=== PATIENT | female | born 1985 | race Caucasian/White ===

== ENCOUNTER 2021-05-03 09:45 | Outpatient (RCR) | payer OTHER, SELFPAY ==
[2021-04-14 11:13] VITALS: BMI 61.9
--- NOTE | 2021-04-14 16:16 | HO.PS.ADMBH ---
[facility] Date of Service: 04/14/21 Chief Complaint: Depression, Anxiety Sources of Information: patient interviewed, chart reviewed and crisis/core team assessment reviewed HPI Guardianship: No Medical Problems Affecting Mental Status: No Narrative: Ms. Gould is a 36 year-old single female, refered to [facility] by [facility] crisis, where she had presented with intense fear, panic, and depressed mood. She explains that her symptoms have escalated over the past two months. She reports she had been stable with Lexapro for years, and did very well. She explained that about a year and half ago, COVID shut down her work, and she stopped taking the Lexapro because she did not feel she needed it at that time. 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 She says that she currently is on leave from work, as the position is extremely demanding. Client explains that she had been doing fairly well until the end of January, although she had begun experiencing random dizzy spells about 6 months ago. 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 She had gone away with her family on vacation this summer, and began to experience severe anxiety when thought of returning to work came on 02/19. That day, she found an old Lexapro 20mg tab that was in her car, and decided to take it. She also had a drink, of vodka and [place]. Soon afterwards, she has began experiencing vomiting, diarrhea, and describes ?lots of anxiety ?, such as feeling as if she were on a roller coaster. She reports that ?then the depression set in ?. Endorses episodes of derealization, dissociation, rumination/over analyzing, hopelessness, helplessness, guilt, anhedonia, and impaired concentration as well as memory. Physical symptoms include frequent vomiting. She used contacted her primary care provider, who had originally prescribed the Lexapro. She was placed back on it, but states that she had multiple side effects, with no help with anxiety. She was also started on prn lorazepam, 0.5mg TID, which she continues to utilize at this time, with somewhat positive affect. She contacted [facility] crisis earlier this month, and they assisted her in finding a psychiatric provider. Her new provider has started her with Prozac. She reports that she started taking the Prozac yesterday. Past medication trials include Zoloft, which caused difficulty in sleeping. Wellbutrin, which caused increased anxiety. Lexapro, which caused GI upset (she had done well with lexapro in past). She was recently placed on Cymbalta, as well as Latuda. She did not like the effect of either, as she experienced N&V. Prozac was initiated yesterday. Aliza reports growing up with both parents, who she had described as supportive. She currently lives in an apartment above them. She has 1 sister, who she also describes as supportive. She reports meeting developmental milestones as expected, although does report receiving extra help with reading as a young child. She denies any type of symptoms such as periods of increased energy, little sleep, feeling extremely productive, or other types of hypomanic behaviors. She reports that she has been experiencing intrusive thoughts at times regarding passive SI, but then states ?I do not want to harm myself or ?. She has no plan or intent at this time. She is hoping to gain healthy coping skills while participating in [facility], in order to help manage her depression and anxiety symptoms, and prevent needing inpatient level of care. Past Psychiatric History: First sought treatment / therapy at age 27, due to ?extreme trauma and harassment ?. [facility] in 2012. Medical Evaluation Reviewed: Yes [facility] Medical History (Updated 04/14/21 @ 16:54 by Jody Garcia) Arthritis Sleep apnea Surgical History (Updated 04/14/21 @ 13:32 by Janet Ta RN) History of adenectomy Family History: paternal grandmother: post- depression, alzheimers Multiple cousins with depression father: extremely emotional / anxious, depression when younger No family history of suicidality or substance use disorder. Social History: Raised by both parents, has 1 sister, describes family as supportive. Substance History: None reported Trauma History: Was bullied throughout school Diagnostics Vital Signs (24Hr): Body Mass Index 61.9 Meds/Allergies Allergies Allergies Allergy/AdvReac Type Severity Reaction Status Date / Time amoxicillin Allergy Hives Verified 04/14/21 13:33 Penicillins [PCN] Allergy Hives Verified 04/14/21 13:33 Mental Status Exam Mental Status Exam Narrative: Well groomed, obese female, in NAD. Sitting upright, fully attentive and participatory during interview. No involuntary movements noted, motor activity calm, posture within normal limits. Ambulation not observed. Patient Appearance: Well Grooomed and Appropriate Patient Orientation: Person, Place, Time and Situation Level of Consciousness: Awake, Appropriate and Alert Patient Behavior: Appropriate, Anxious and Good Eye Contact Mood Description: Appropriate, Depressed and Anxious Affect Description: Appropriate, Depressed and Anxious Patient Cognition Impaired: No Ability to Follow Directions: Excellent Speech Pattern: Clear, Appropriate, Spontaneous Speech and Coherent Memory Description: Intact and Recent Impaired (Impaired short-term memory) Hallucinations: None Delusions: Not Present Perceptual Disturbances: Depersonalization Thought Process: Intact, Goal Oriented and Linear Thought Content: positive for Intact, positive for Perseveration (Extremely concerned regarding medications, risk of dependence, physical symptoms of anxiety.) and positive for Suicidal Ideation (Passive SI, no plan or intent at this time.) Depressive Symptoms: Increased Anxiety, Diff. Making Decisions, Difficulty Sleeping, Loss of Int. in Activity, Feelings of Worthlessness, Hopelessness, Feelings of Guilt, Unhappiness, Increased Fatigue, Thoughts of /Suicide, Low Self Esteem and Difficulty Concentrating Judgement: Fair Telehealth Telehealth Location of provider rendering services: practice address Location of patient: address on file Patient Identification confirmed using: Name, : Yes Telehealth method: video Patient verbally consented to treatment: Yes Patient verbally consented to billing insurance company: Yes Patient informed of any privacy concerns related to visit: Yes Time spent with patient (mins): 45 Assessment & Plan Assessment & Plan (1) Major depressive disorder, recurrent severe without psychotic features: Status: Acute Code(s): F33.2 - Major depressive disorder, recurrent severe without psychotic features Assessment and Plan: Client describes current symptoms of depressive disorder. Includes recent multiple stressors over the past 2 years, which have exacerbated her symptoms, especially most recently within the past 2 months. She has had multiple medication trials especially over the past 2 months. Has started Prozac yesterday. Education provided regarding medication, side effects, risks and benefits. Client encouraged to wait out transient side effects at this time, to allow medication to be effective. She was in agreement with this. She does endorse intrusive thoughts at times, passive SI, with no intent or plan. Use of atypical antipsychotics was discussed briefly, for assistance with intrusive thoughts as well as mood regulation. She stated that she would consider this. (2) Generalized anxiety disorder: Status: Acute Code(s): F41.1 - Generalized anxiety disorder Assessment and Plan: Client has expressed severe anxiety over the past several months, which actually began approximately 6 months ago. She had been managed very well with Lexapro for years for both depression and anxiety, but had stopped taking it during pandemic. When re-initiated recently, found that it caused severe side effects and was no longer effective. Client's provider has prescribed lorazepam 0.5 mg t.i.d. p.r.n.. Client expressed concern regarding potential addiction. Medication education provided, including indication for use of lorazepam, as well as risks and benefits, potential side effects as well as ways to taper down once no longer needed. Client was in agreement to continue utilizing this medication as prescribed for now, as she begins course of SSRI therapy. (3) Panic disorder: Status: Acute Code(s): F41.0 - Panic disorder [episodic paroxysmal anxiety] Assessment and Plan: Client currently utilizing p.r.n. lorazepam to help manage overwhelming feelings of anxiety and panic. Med appears to have be having somewhat positive affect at this time. Client is also asking about Vistaril. Medication education regarding hydroxyzine provided, including indications for use, risks and benefits, side effects, etc.. Client is in agreement to continue with lorazepam at this time, and to consider hydroxyzine if and when appropriate. Assessment and Plan: 1. Continue current medications as prescribed at this time. 2. Follow-up with client as per protocol. 3. Client encouraged to research use of hydroxyzine as well as atypical antipsychotic such as quetiapine or risperidone. She stated she would do so and then present any questions she has regarding any of these medications going forward, during next encounter. Reason for continued partial hosp. stay Substantial Risk for: harm to self, inability to function, rapid decompensation and med/psych decompensation Certification I certify that partial hospital treatment is medically necessary due to the symptoms and problems resulting from the patient's mental illness and the failure to treat the patient at the partial hospital level of care would likely result in the patient requiring inpatient psychiatric care which could not be prevented at a less intensive level of care.
--- NOTE | 2021-04-17 08:15 | PC.ADMIT ---
Patient is a 36 year old female who was referred to [facility] by [facility] d/t increase in anxiety with panic attacks and depression with passive SI however no plan or intent, stating she does not want to . Patient unable to work d/t symptoms and she is currently on a MATTHIAS from work as a result. Patient is currently living with her parents even though she has her own apartment however she is afraid to be alone. Reports decreased appetite losing 50 lbs recently that has been unintentional. States she has been sick in the am and having diarrhea d/t extreme anxiety. Patient also reports she has sleep apnea and uses a c-pap machine however is only getting 6-8 hours of sleep per night with multiple awakenings. Patient reports she is not able to function and is having difficulty leaving the house. Reports her mood has been stable for a long time until recently and has a history of attending PHP in 2012 and found it helpful at that time. Patient had some recent medication changes and has started Prozac 2 days ago. Worried she will never feel better again. Reports dizzy spells related to anxiety and is constantly thinking negative thoughts about herself. Reports multiple stressors including mothers diagnosis of breast cancer. Patient alert and oriented x4. Presents with depressed mood, anxious affect. Denied SI. Patient gave verbal permission to email her a copy of her safety plan. Medications reconciled with patient and patient's pharmacy.
--- NOTE | 2021-04-17 16:22 | PC.NURSE ---
Case opened in treatment team.
--- NOTE | 2021-04-19 16:20 | HO.PHPPROGNO ---
Subjective Subjective Date of Service: 04/19/21 Reason For Visit: Depression, Anxiety Guardianship: No Medical Problems Affecting Mental Status: No Interim History: Aliza reports she is taking the fluoxetine 10 mg daily. Also utilizing Ativan t.i.d. p.r.n. as prescribed. She does report that since she began the increased dose of fluoxetine from 5 mg to 10 mg, she does notice a little more nausea. She states that she had to force herself to eat breakfast this a.m., and did not eat lunch today due to nausea. She reports that her parents have told her they have seen an improvement in her demeanor since she has begun using Prozac. She states she also feels like she is getting better. Tearful at times during encounter, states that she feels guilty, feels cooped up at her home. Describes continued passive SI with no plan or intent, although states that they are less than last visit. She reports she is participating in groups during the day, but then she feels drained afterwards, and is going to bed early each night. Medication Compliance: Yes Side effects from medications: No Attending Groups: Yes Review of Systems Acute medical concerns: No Medical Review of Systems: unchanged Review of Systems Review of Systems Yes all other systems are reviewed and are negative Mental Status Exam Mental Status Exam Narrative: Well devloped female, in NAD. Appropriate grooming, dressed appropriately. Alert and oriented x4. Patient Appearance: Well Grooomed, Fatigued and Appropriate Patient Orientation: Person, Place, Time and Situation Level of Consciousness: Appropriate and Alert Patient Behavior: Appropriate, Cooperative, Anxious, Good Eye Contact and Crying (Tearful at times during encounter.) Mood Description: Appropriate, Depressed and Anxious Affect Description: Appropriate, Depressed and Anxious Patient Cognition Impaired: No Speech Pattern: Clear, Appropriate, Spontaneous Speech and Coherent Memory Description: Intact Hallucinations: None Delusions: Not Present Thought Process: Intact, Goal Oriented and Linear Thought Content: positive for Intact, positive for Goal Oriented, positive for Linear and positive for Suicidal Ideation (passive SI, with no intent or plan) Depressive Symptoms: Increased Anxiety, Difficulty Sleeping (reports tossing and turning throughout night), Changes in Appetite, Crying Spells, Loss of Int. in Activity, Feelings of Worthlessness, Hopelessness, Isolating-Friends/Family, Feelings of Guilt, Unhappiness, Increased Fatigue, Thoughts of /Suicide, Low Self Esteem, Loss of Energy and Difficulty Concentrating Judgement: Fair Diagnostics Vital Signs (24Hr): Body Mass Index 61.9 Assessment & Plan Assessment & Plan (1) Major depressive disorder, recurrent severe without psychotic features: Status: Acute Code(s): F33.2 - Major depressive disorder, recurrent severe without psychotic features Assessment and Plan: Patient had taken Prozac 5 mg x 1 week, dose was increased to 10 mg, which she started this morning. Discussed continuing with taper, she will consider in 1 week going to a higher dose of Prozac. She is fearful regarding side effects, as she has experienced some slight GI symptoms. She is hopeful regarding Prozac, as she has noticed a he lived in [facility], as well has her parents noticing it. She continues with passive SI, although states that they are less intense than last week. Denies any intent or plan, no safety concern at this time. (2) Generalized anxiety disorder: Status: Acute Code(s): F41.1 - Generalized anxiety disorder Assessment and Plan: Client continues with 0.5 lorazepam, t.i.d. p.r.n.. She is fearful of developing addiction. This was discussed in detail, and client was encouraged to continue using as prescribed, as it is helping to manage anxiety symptoms. Other strategies also discussed, such as journaling, reframing, distraction techniques, etc.. (3) Panic disorder: Status: Acute Code(s): F41.0 - Panic disorder [episodic paroxysmal anxiety] Assessment and Plan: 1. Prozac 10 mg daily x7 days, with plan to increase dose as tolerated. 2. Continue with current lorazepam 0.5 t.i.d. p.r.n. for anxiety. 3. Will follow-up as per protocol. Patient educated on: diagnosis, medication risk/benefits, substance abuse and therapeutic strategies Informed Consent: understands Reason for contiued partial hosp. stay Substantial Risk for: inability to function and med/psych decompensation Certification I certify that partial hospital treatment is medically necessary due to the symptoms and problems resulting from the patient's mental illness and the failure to treat the patient at the partial hospital level of care would likely result in the patient requiring inpatient psychiatric care which could not be prevented at a less intensive level of care. I spent minutes with the patient and/or on the patient floor today, greater than?50% of which was spent counseling/coordinating care. Discharge Plan Discharge Attending provider: Vipul Jones Medications: No Action fluoxetine 10 mg Tablet 10 mg PO DAILY RF: 0 lorazepam [Ativan] 0.5 mg Tablet 0.5 mg PO TID PRN (Reason: Anxiety) RF: 0 Telehealth Telehealth Location of provider rendering services: practice address Location of patient: address on file Patient Identification confirmed using: Name, : Yes Telehealth method: video Patient verbally consented to treatment: Yes Patient verbally consented to billing insurance company: Yes Patient informed of any privacy concerns related to visit: Yes Time spent with patient (mins): 15
--- NOTE | 2021-04-24 14:54 | HO.PHPPROGNO ---
Subjective Subjective Date of Service: 04/24/21 Reason For Visit: Depression, Anxiety Guardianship: No Medical Problems Affecting Mental Status: No Interim History: Aliza reports that she feels the Prozac is helping. Willing to have increased in dose today. Also reports continued use Ativan p.r.n.. Overall continues with some anxiety and depression, but feels it is slowly improving. Does not feel has had panic attack in past 2 days. Medication Compliance: Yes Side effects from medications: No Attending Groups: Yes Review of Systems Acute medical concerns: No Medical Review of Systems: unchanged Review of Systems Review of Systems Yes all other systems are reviewed and are negative Constitutional: Reports no additional constitutional complaints Eyes: Reports no additional eye complaints Reports Normal hearing present Cardiovascular: Reports no additional cardiovascular complaints Respiratory: Reports no additional respiratory complaints Gastrointestinal: Reports no additional gastrointestinal complaints Genitourinary: Reports no additional female genitourinary complaints Musculoskeletal: Reports no additional musculoskeletal complaints Reports Normal hearing present Mental Status Exam Mental Status Exam Narrative: Well-developed female, in no apparent distress. Appears stated age, dressed appropriately for age and season. No involuntary movements noted, motor activity calm, posture within normal limits. Denies any thought of harm to self or others, denies any type of hallucinations or delusional thought, does not appear to be responding to any type of internal stimuli. No mood lability or constriction noted. Patient Appearance: Well Grooomed and Appropriate Patient Orientation: Person, Place, Time and Situation Level of Consciousness: Awake Patient Behavior: Appropriate, Cooperative, Anxious, Good Eye Contact and Crying (tearful at times) Mood Description: Appropriate, Depressed and Anxious Affect Description: Appropriate, Depressed and Anxious Patient Cognition Impaired: No Ability to Follow Directions: Excellent Speech Pattern: Appropriate, Spontaneous Speech and Coherent Memory Description: Intact Hallucinations: None Delusions: Not Present Perceptual Disturbances: Depersonalization (Reports zoning out watching movies over wknd, feeling as if dissociating. ) Thought Process: Intact, Goal Oriented and Linear Thought Content: positive for Intact, positive for Goal Oriented and positive for Linear Depressive Symptoms: Increased Anxiety, Difficulty Sleeping, Crying Spells, Loss of Int. in Activity, Feelings of Worthlessness, Hopelessness, Feelings of Guilt, Increased Fatigue and Low Self Esteem Judgement: Fair Diagnostics Vital Signs (24Hr): Body Mass Index 61.9 Assessment & Plan Assessment & Plan (1) Major depressive disorder, recurrent severe without psychotic features: Status: Acute Code(s): F33.2 - Major depressive disorder, recurrent severe without psychotic features Assessment and Plan: Client reports she has taken Prozac 10 mg since last week, with no side effects noted. States she is willing to in consider dose increase at this time. Discussed increasing it to 20 mg daily, she was in agreement. She continues with some overall depression and anxiety symptoms, although she feels they are beginning to improve. We did discuss adding adjunct of medication if needed, such as low-dose risperidone, quetiapine, or Abilify. She states she would like to trial the increased Prozac x1 week for now, but will consider at next week if needed. (2) Generalized anxiety disorder: Status: Acute Code(s): F41.1 - Generalized anxiety disorder Assessment and Plan: Client continues to she feels that she is beginning to show some improvement signs regarding anxiety. utilize p.r.n. Ativan 0.5 mg t.i.d.. Has ample supply at home, no refills needed at this time. (3) Panic disorder: Status: Acute Code(s): F41.0 - Panic disorder [episodic paroxysmal anxiety] Assessment and Plan: Client continues to utilize p.r.n. Ativan as needed, reports no panic attacks over past few days, feels that she is beginning to improve regarding symptoms. Assessment and Plan: 1. Increase prozac to 20mg daily. 2. Continue with prn ativan 0.5mg TID prn as prescribed. 3. Follow-up as per protocol Patient educated on: diagnosis, medication risk/benefits and therapeutic strategies Informed Consent: understands Reason for contiued partial hosp. stay Substantial Risk for: inability to function and med/psych decompensation Certification I certify that partial hospital treatment is medically necessary due to the symptoms and problems resulting from the patient's mental illness and the failure to treat the patient at the partial hospital level of care would likely result in the patient requiring inpatient psychiatric care which could not be prevented at a less intensive level of care. I spent minutes with the patient and/or on the patient floor today, greater than?50% of which was spent counseling/coordinating care. Discharge Plan Discharge Attending provider: Vipul Jones Medications: New fluoxetine 20 mg tablet 20 mg PO DAILY Qty: 30 RF: 0 Discontinued fluoxetine 10 mg Tablet 10 mg PO DAILY RF: 0 No Action lorazepam [Ativan] 0.5 mg Tablet 0.5 mg PO TID PRN (Reason: Anxiety) RF: 0 Telehealth Telehealth Location of provider rendering services: practice address Location of patient: address on file Patient Identification confirmed using: Name, : Yes Telehealth method: video Patient verbally consented to treatment: Yes Patient verbally consented to billing insurance company: Yes Patient informed of any privacy concerns related to visit: Yes Time spent with patient (mins): 15
--- NOTE | 2021-04-26 15:33 | PC.NURSE ---
I called pt after she was tearful in a group and requested a call from staff. She was still quite tearful and shared that she just got a call from [facility] stating that she will no longer be able to see Dr. Post at [facility]. She said the person who called her stated that Dr. Post was temporary, and was to end when she got into [facility]. Pt said she was never told this, and she was extremely distraught upon hearing this news. She reported passive SI, but no plan or intent. We discussed the possibility of me referring her to [facility] for therapy and med management, as pt has to stop seeing her therapist at the end of May due to [facility] apparently closing their behavioral health services. Pt was more tearful at the thought of having to end early with her therapist in able to access med management services. She began to display panic. We then reviewed coping skills including breathing and ideas to distract, and pt seemed somewhat more calm but still a bit tearful. She reported plans to speak with her father, and spend time with both parents. We agreed to talk about the issue at a later time.
--- NOTE | 2021-04-26 15:48 | PC.NURSE ---
I received a call from Sada Sánchez at [facility] asking about pt's discharge plans and if the plan includes medication management. After getting pt's permission to call, I called back and LM for Sada letting her know that we only found out today about Dr. Post being temporary , and that it would likely take months for her to get in with another med provider. I explained that PHP is a 2-3 week program, and asked her to pls call back if she has any way to help with this.
--- NOTE | 2021-05-01 13:10 | PC.NURSE ---
Spoke to patient's PCP's office asking if they will prescribe patient medications until Aliza has an appointment with a new medication prescriber. Patient's PCP Aliza Maza left a message on my machine stating she will prescribe the medications she just needs to know the doses of the medications which we will fax upon patient d/c from the program. The patient Aliza is aware.
--- NOTE | 2021-05-02 14:27 | P.PNPSP_ITS ---
Subjective Subjective Date of Service: 05/02/21 Reason For Visit: Depression, Anxiety Interim History: Patient seen and discussed with team. Patient evaluated this morning and upon interview she reports she is hanging in there. She was able to titrate her prozac dose to 20 mg. States the first day she took it she didnt notice any nauseousness, however the second and third day she did notice nausea. Denies benefit, however has not had dizzy spells on prozac. Says she is still having to take ativan 3 times a day, has been using it 2 mo. Pt is tearful discussing GI sensitivities, says she has been struggling with nausea, diarrhea, and GI distress x a couple mo. Says she is considering I[facility], stating its just been really hard. Discussed consulting with her PCP, Dr. Maza, regarding GI workup and r/o of vertigo. Medication Compliance: Yes Side effects from medications: Yes Attending Groups: Yes Mental Status Exam Mental Status Exam Narrative: Well-developed female, in no apparent distress.? Appears stated age, dressed appropriately for age and season. No involuntary movements noted, motor activity calm, posture within normal limits.? Denies any thought of harm to self or others, denies any type of hallucinations or delusional thought, does not appear to be responding to any type of internal stimuli.? No mood lability or constriction noted. Patient Appearance:?Well Grooomed and Appropriate Patient Orientation:?Person, Place, Time and Situation Level of Consciousness:?Awake Patient Behavior:?Appropriate, Cooperative, Anxious, Good Eye Contact and Crying (tearful at times) Mood Description:?Appropriate, Depressed and Anxious Affect Description:?Appropriate, Depressed and Anxious Patient Cognition Impaired:?No Ability to Follow Directions:?Excellent Speech Pattern:?Appropriate, Spontaneous Speech and Coherent Memory Description:?Intact Hallucinations:?None Delusions:?Not Present Perceptual Disturbances:?denies Thought Process:?Intact, Goal Oriented and Linear Thought Content:?positive for Intact, positive for Goal Oriented and positive for Linear Depressive Symptoms:?Increased Anxiety, Difficulty Sleeping, Crying Spells, Loss of Int. in Activity, Feelings of Worthlessness, Hopelessness, Feelings of Guilt, Increased Fatigue and Low Self Esteem Judgement:?Fair Diagnostics Vital Signs (24Hr): Body Mass Index 61.9 Assessment & Plan Assessment & Plan (1) Major depressive disorder, recurrent severe without psychotic features: Status: Acute Code(s): F33.2 - Major depressive disorder, recurrent severe without psychotic features Assessment and Plan: Now on prozac 20 mg daily, reports she continues to have GI distress i.e. diarrhea, feels discouraged by this and has anxiety, tearful discussing somatic sx. (2) Panic disorder: Status: Acute Code(s): F41.0 - Panic disorder [episodic paroxysmal anxiety] Assessment and Plan: Client continues to utilize p.r.n. Ativan as needed, with positive effect.. (3) Generalized anxiety disorder: Status: Acute Code(s): F41.1 - Generalized anxiety disorder Assessment and Plan: Pt continues to report anxious mood, worries about somatic sx, goes into detail about her hx of med trials and side effects. Utilizing PRN ativan three times a day with moderate benefit. On prozac 20 mg, will monitor for benefit. Assessment and Plan: 1. Continue prozac 20mg daily. 2. Continue with prn ativan 0.5mg TID prn as prescribed. 3. I consulted with PCP, Dr. Maza, who reports she has not made referral for GI specialist or ENT for vertigo due to attributing sx of dizziness, nausea, diarrhea, and GI sensitivity to her psychiatric disorders. Encouraged pt to continue to monitor prozac for benefit and side effects may be temporary, however may need to consider further medical workup. 4. Follow-up as per protocol Certification I certify that partial hospital treatment is medically necessary due to the symptoms and problems resulting from the patient's mental illness and the failure to treat the patient at the partial hospital level of care would likely result in the patient requiring inpatient psychiatric care which could not be prevented at a less intensive level of care. I spent minutes with the patient and/or on the patient floor today, greater than?50% of which was spent counseling/coordinating care. Discharge Plan Discharge Attending provider: Vipul Jones Additional Instructions: Appointment for an intake at [facility] via zoom with claim clinician ALYSSA Blanco on 05/12/2021 at 9am. [facility] central intake can be reached at [phone], choose option 2. Medications: Discontinued fluoxetine 10 mg Tablet 10 mg PO DAILY RF: 0 No Action lorazepam 0.5 mg tablet 1 tab PO TID PRN (Reason: Anxiety) RF: 0 fluoxetine 20 mg tablet 1 tab PO DAILY RF: 0 Stand Alone Forms: Patient Portal Discharge page
--- NOTE | 2021-05-03 13:47 | PC.NURSE ---
Patient is planning on going for an crisis evaluation for inpatient hospitalization as she stated she is not feeling any better. Feelings of hopelessness and helplessness. Reports SI feels she will never feel better, however no plan or intent. Patient was planning on going to a hospital in [facility] however she called me to let me know that did not work out and wants to go to [facility]. Patient stated she will be safe and she is with her parents. She stated she has a doctors appointment at 3:45 that she does not want to miss as she wants to get some answers as she is also struggling with Vertigo. She stated afterwards that her parents are going to bring her to [facility] and will be evaluated by [facility] crisis. Patient stated she did not want to have crisis go to her home for evaluation as she prefers to go to the ER. Patient left [facility] early as she stated she needed to pack for the hospital. I did a nurse to nurse with Taryn NEVAREZ in the [facility] ER POd and alerted Domonique Epperson regarding bed availability as well as Adali Jaimes.
== END 2021-05-04 07:15 | disposition home or self-care (01) ==
LOC: HO.PHPA 09:45
PROVIDERS: Visit Provider Psychiatry & Neurology Psychiatry
DX: F33.2 Major depressive disorder, recurrent severe without psychotic features (principal); F41.1 Generalized anxiety disorder; F41.0 Panic disorder [episodic paroxysmal anxiety]; Z79.899 Other long term (current) drug therapy
CPT/HCPCS: 90853

== ENCOUNTER 2021-05-03 17:27 | Emergency (ER) | payer OTHER, SELFPAY ==
[2021-05-03 18:11] VITALS: BP 143/77; PULSE 89; RESP 16; TEMP 37.1; O2SAT 97; BMI 46.2
--- NOTE | 2021-05-03 18:11 | ED.ANXIETY ---
HPI - Anxiety General Chief Complaint: Psychiatric Symptoms Stated Complaint: mental eval Time Seen by Provider: 05/03/21 18:08 Source: patient and EMS Mode of arrival: EMS Limitations: no limitations History of Present Illness HPI narrative: This is a 36 years old of female who presented to the emergency department with a chief complain of a anxiety, depression she is afraid to be alone. She states that she has been participating in the partial hospitalization program but is not working MD complaint: anxiety Onset (ago): day(s) (1) Severity: moderate Quality: constant Relieving factors: nothing Related Data Home Medications Medication Instructions Recorded Confirmed lorazepam 0.5 mg tablet (Ativan) 0.5 mg PO TID PRN 04/14/21 04/14/21 Previous Rx's Medication Instructions Recorded fluoxetine 20 mg tablet 20 mg PO DAILY #30 tab 04/24/21 Allergies Allergy/AdvReac Type Severity Reaction Status Date / Time amoxicillin Allergy Hives Verified 04/14/21 13:33 Penicillins [PCN] Allergy Hives Verified 04/14/21 13:33 Review of Systems Review of Systems: Yes all other systems are reviewed and are negative Constitutional: Constitutional: Reports no additional constitutional complaints ENT: Denies vertigo, Denies nasal congestion and Denies sore throat Cardiovascular: Cardiovascular: Denies edema, Denies dyspnea on exertion, Denies orthopnea and Denies paroxysmal nocturnal dyspnea Respiratory: Respiratory: Denies dyspnea on exertion Gastrointestinal: Gastrointestinal: Denies abdominal pain and Denies belching Genitourinary: Genitourinary: Reports no additional female genitourinary complaints Musculoskeletal: Musculoskeletal: Reports no additional musculoskeletal complaints Integumentary/Breasts: Skin/Breast: Reports system reviewed and no additional complaints, except as docu Neurologic: Reports system reviewed and no additional complaints, except as documented and Denies vertigo Psychiatric: Psychiatric: Reports depression and Reports hopelessness [facility] Past Medical History Medical History Arthritis Sleep apnea Surgical History History of adenectomy Social History Social History Household Members: Family Patient Tobacco Use Status: Never used Tobacco Advance Directives: No Advance Directives Information Provided: Yes Patient : No Physical Exam Vital Signs: Vital Signs: Last Vital Signs Temp 98.8 F 05/03/21 18:11 Pulse 89 05/03/21 18:11 Resp 16 05/03/21 18:11 BP 143/77 H 05/03/21 18:11 Pulse Ox 97 05/03/21 18:11 Body Mass Index 46.2 Const: General: cooperative and anxious Orientation/consciousness: oriented to person, oriented to place, oriented to time and patient oriented x3 HENMT: Head: Yes normal to inspection Face and sinus: Yes normal facial exam Mouth: Normal oral and palatal mucosa present Throat: Yes posterior oropharynx normal Neck: Neck: Yes normal visual inspection, Yes full ROM and Yes no lymphadenopathy Chest: Chest palpation & inspection: normal inspection of the chest Resp: Effort & Inspection: normal respiratory effort Cardio: Rate: regular rate Rhythm: regular rhythm GI: Inspection: Yes normal to inspection Palpation (GI): Soft to palpation, not firm, nontender and no guarding Auscultation: normal bowel sounds Skin: General skin exam: no rashes or lesions noted and elasticity normal Lesions: no lesions Rashes: no rashes Neuro: General: oriented to person, oriented to place, oriented to time and patient oriented x3 Cranial nerves: Yes CN's II-XII intact bilaterally Cognition (Neuro): normal cognition Discharge Plan Discharge Clinical Impression: Depression, Anxiety Prescriptions: No Action lorazepam [Ativan] 0.5 mg Tablet 0.5 mg PO TID PRN (Reason: Anxiety) RF: 0 fluoxetine 20 mg tablet 20 mg PO DAILY Qty: 30 RF: 0
[2021-05-03 20:07] LABS: Appearance Urine HAZY; Color Urine YELLOW; Glucose Urine UA NEG (NEG); Leukocyte Esterase Urine 1+ (NEG); Nitrite Urine NEG (NEG); Specific Gravity - Urine 1.025 (1.005-1.025); UACC Culture Trigger YES; Urine Blood NEG (NEG); Urine Ketones NEG (NEG); Urine Protein NEG (NEG-TRACE)
[2021-05-03 20:08] LABS: Urine Pregnancy NEGATIVE (NEGATIVE)
[2021-05-03 20:09] LABS: UPreg QC Valid YES
[2021-05-03 20:19] LABS: Bacteria Urine 1+ /LPF; Mucus Urine 1+ /LPF; RBC Urine 0-2 /HPF (0); Squamous Epithelial Cell Urine 2+ /LPF; UACC CULT YES
[2021-05-03 20:26] LABS: Amphetamine Screen Urine Not Detected (Not Detect); Barbiturates, Urine Not Detected (Not Detect); Benzodiazepines Screen Urine Not Detected (Not Detect); Cannabinoid Screen Urine Not Detected (Not Detect); Cocaine Screen Urine Not Detected (Not Detect); Fentanyl, urine Not Detected (Not Detect); Opiate Screen Urine Not Detected (Not Detect); Phencyclidine Screen Urine Not Detected (Not Detect)
[2021-05-03 20:33] LABS: COVID-19 Test Negative (Negative)
[2021-05-03] MEDS: LORazepam 0.5 MG TABLET PO (22:13)
--- NOTE | 2021-05-03 23:25 | PC.NURSE ---
Patient was evaluated by the care team, disposition is section 12 inpatient bed search, provider, patient, and family aware of the disposition. reported anxiety 5/10, prn ativan .0 mg administered as ordered with + effect, VSS, patient is on CPAP machine and being watched on 1:1, behavior appropriate, medication compliant, will continue to monitor.
--- NOTE | 2021-05-04 05:53 | PC.NURSE ---
Patient slept through the night, no distress observed/reported, patient use CPAP was observed on 1:1 for safety, VSS, medication compliant, behavior appropriate, patient has good family support, patient was assessed by care team disposition is section 12 inpatient bed search, VSS, will continue to monitor.
[2021-05-04 06:25] VITALS: BP 138/70; PULSE 74; RESP 18; TEMP 37.3; O2SAT 97
[2021-05-04] MEDS: LORazepam 0.5 MG TABLET PO ×2 (06:50→21:22)
--- NOTE | 2021-05-04 07:05 | PC.NURSE ---
patient appears to remain at rest at present, respirations are even and unlabored, patient appears in no distress
[2021-05-04] MEDS: FLUoxetine HCl 20 MG CAPSULE PO (08:29)
[2021-05-04] MEDS: LORazepam 1 MG TABLET PO (09:57)
--- NOTE | 2021-05-04 10:35 | PC.NURSE ---
clients father spoke to this underwriter mortgage loan talked about coordinating information to facilitate admit to a [place] treatment facility, [facility] (?)
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
--- NOTE | 2021-05-04 16:51 | MHC.CARE ---
Pt will have phone interview with [facility] intake tomorrow at 9am.
[2021-05-04] MEDS: hydrOXYzine HCL 25 MG TABLET PO ×2 (18:24→21:22)
--- NOTE | 2021-05-05 05:43 | PC.NURSE ---
Patient slept through the night, patient is on 1:1 observation due to CPAP use, no distress observed/reported, behavior calm and quiet mostly at time tearful, medication compliant, disposition per care team is section 12 inpatient bed search with update on bed search status, VSS, contracted for the safety, will continue to monitor
[2021-05-05 06:42] VITALS: BP 137/70; PULSE 63; RESP 18; TEMP 37.1; O2SAT 96
--- NOTE | 2021-05-05 09:09 | PC.NURSE ---
[facility] on the phone speaking with patient for intake.
[2021-05-05 09:28] VITALS: BP 122/56; PULSE 76; RESP 18; TEMP 36.9; O2SAT 98
[2021-05-05] MEDS: FLUoxetine HCl 20 MG CAPSULE PO (10:05)
[2021-05-05] MEDS: LORazepam 0.5 MG TABLET PO ×2 (10:05→13:49)
[2021-05-05] MEDS: hydrOXYzine HCL 10 MG TABLET PO (13:49)
[2021-05-05 20:03] VITALS: RESP 16
[2021-05-05 20:04] VITALS: RESP 16
[2021-05-05 20:05] VITALS: RESP 16
[2021-05-05 20:21] VITALS: BP 137/45; PULSE 68; RESP 16; TEMP 36.6; O2SAT 97
[2021-05-05] MEDS: hydrOXYzine HCL 25 MG TABLET PO (21:04)
[2021-05-06] MEDS: FLUoxetine HCl 20 MG CAPSULE PO (08:16)
[2021-05-06] MEDS: LORazepam 0.5 MG TABLET PO ×2 (08:17→15:12)
[2021-05-06 08:21] VITALS: BP 132/67; PULSE 68; RESP 18; TEMP 36.8; O2SAT 96
[2021-05-06] MEDS: hydrOXYzine HCL 10 MG TABLET PO (12:03)
[2021-05-06 15:39] VITALS: BP 131/84; PULSE 65; RESP 20; TEMP 37.3; O2SAT 96
[2021-05-06] MEDS: hydrOXYzine HCL 25 MG TABLET PO (20:11)
[2021-05-06 22:18] VITALS: RESP 16
[2021-05-07 06:24] VITALS: BP 122/76; PULSE 78; RESP 16; TEMP 36.6; O2SAT 97
[2021-05-07] MEDS: FLUoxetine HCl 20 MG CAPSULE PO (07:41)
[2021-05-07] MEDS: LORazepam 0.5 MG TABLET PO ×2 (07:41→13:31)
--- NOTE | 2021-05-07 07:44 | PC.NURSE ---
report taken from mike michelle pt up to bathroom on first contact, reports feeling anxious, given prn for anxiety w hs meds, tolerating po w/o issue. cpap put away in locker once awake. conversing w care team clinician, tearful. pending placement 05/09. [facility] for dc needs.
[2021-05-07] MEDS: hydrOXYzine HCL 10 MG TABLET PO (10:38)
[2021-05-07 11:41] LABS: MANUAL DIFF FLAG NO
[2021-05-07 11:43] LABS: Basophils Absolute Auto 0.1 X10*3/uL (0.0-0.2); Basophils Percent Auto 0.7 % (0-2); Eosinophils Absolute Auto 0.1 X10*3/uL (0.0-0.4); Eosinophils Percent Auto 1.1 % (0-4); Hemoglobin 12.7 g/dl (12.0-16.0); Imm Gran Abs Auto 0.02 X10*3/uL (0.00-0.03); Imm Gran Pct Auto 0.3 % (0.0-0.4); Lymphocytes Absolute Auto 1.6 X10*3/uL (1.2-4.9); Mean Corpuscular HGB Conc 31.8 g/dl (31.0-35.0); Mean Corpuscular Hemoglobin 26.7 pg (27.0-33.0); Mean Corpuscular Volume 84.2 fL (80.0-98.0); Mean Platelet Volume 12.6 fL (9.4-12.3); Monocytes Absolute Auto 0.4 X10*3/uL (0.1-1.2); Monocytes Percent Auto 5.8 % (2-11); Neutrophils Percent Auto 70.1 % (45-73); Platelet Count 242 X10*3/uL (160-400); Red Blood Count 4.75 X10*6/uL (4.20-5.50); Red Cell Distribution Width 16.1 % (11.0-16.0); White Blood Count 7.1 X10*3/uL (4.8-10.8)
[2021-05-07 12:00] LABS: Anion Gap 12 (12-20); Blood Urea Nitrogen 12 mg/dL (9-16); Calcium 8.9 mg/dL (8.4-10.2); Carbon Dioxide 24 mmol/L (22-29); Chloride 108 mmol/L (96-108); Creatinine Clr Calc Pharmacy 144.2; Estimated Glomerular Filt Rate > 60; Glucose Random 96 mg/dL (60-115); Potassium 4.1 mmol/L (3.3-5.1); Sodium 140 mmol/L (135-145)
--- NOTE | 2021-05-07 12:06 | PC.NURSE ---
pt reports feeling very anxious that all her lab work and other medical information needs to be sent over to [facility] when she goes there on Saturday.
--- NOTE | 2021-05-07 13:53 | PC.NURSE ---
pts mother at bedside.
[2021-05-07 16:23] VITALS: BP 144/83; PULSE 63; RESP 20; TEMP 37.2; O2SAT 97
[2021-05-07] MEDS: hydrOXYzine HCL 25 MG TABLET PO (20:12)
[2021-05-08 06:22] VITALS: BP 121/50; PULSE 60; RESP 17; TEMP 36.8; O2SAT 95
--- NOTE | 2021-05-08 06:26 | PC.NURSE ---
Patient slept through the night, no distress observed/reported, patient was on 1:1 due to CPAP use, behavior appropriate, medication compliant, patient is accepted to [facility], ETA 05/09/2021 @ 3 pm, will continue to monitor.
--- NOTE | 2021-05-08 07:22 | PC.NURSE ---
patient appears at rest at present, respirations are even and unlabored, patient appears in no distress
[2021-05-08] MEDS: FLUoxetine HCl 20 MG CAPSULE PO (08:31)
[2021-05-08] MEDS: LORazepam 0.5 MG TABLET PO ×2 (08:43→15:05)
[2021-05-08 09:05] VITALS: BP 125/81; PULSE 79; RESP 16; TEMP 37.1; O2SAT 96
[2021-05-08] MEDS: hydrOXYzine HCL 10 MG TABLET PO (13:13)
[2021-05-08 17:58] LABS: COVID-19 Test Negative (Negative); IDNOW Serial# 9DD0AD1C
[2021-05-08] MEDS: hydrOXYzine HCL 25 MG TABLET PO (21:09)
--- NOTE | 2021-05-09 05:40 | PC.NURSE ---
Patient slept through the night, patient is on 1:1 observation due to CPAP use, behavior appropriate, medication compliant, patient is being accepted to [facility] in [place], transfer paper work with [facility] patient care secretary, will continue to monitor.
[2021-05-09] MEDS: hydrOXYzine HCL 10 MG TABLET PO (05:52)
[2021-05-09 06:13] VITALS: BP 139/70; PULSE 56; RESP 17; TEMP 36.7; O2SAT 96
--- NOTE | 2021-05-09 07:23 | PC.NURSE ---
patient appears to remain at rest at present respirations are even and unlabored, patient appears in no distress
[2021-05-09] MEDS: FLUoxetine HCl 20 MG CAPSULE PO (08:25)
[2021-05-09 08:38] VITALS: BP 129/77; PULSE 72; RESP 16; TEMP 36.8; O2SAT 97
[2021-05-09] MEDS: LORazepam 0.5 MG TABLET PO (09:57)
== END 2021-05-09 12:35 ==
PROVIDERS: Emergency Medicine; Physician Assistant; Emergency Provider Emergency Medicine; PCP Internal Medicine
DX: F41.9 Anxiety disorder, unspecified (principal); F32.A Depression, unspecified; Z20.822 Contact with and (suspected) exposure to COVID-19
CPT/HCPCS: 36415; 80048; 80307; 81001; 81025; 85025; 87086; 87635; 99285